=== PATIENT | female | born 1955 | race Caucasian/White ===

== ENCOUNTER 2018-05-06 16:12 | Emergency (ER) | payer BC ==
[2018-05-06] MEDS ORDERED: Adenosine 6 MG/2 ML VIAL ONE ×2 (16:29→16:36)
[2018-05-06 16:44] LABS: #Basophils 0.1 thou/uL (0.0-0.2); #Eosinphils 0.2 thou/uL (0.0-0.7); #Lymphocytes 2.5 thou/uL (1.20-3.40); #Monocytes 0.9 thou/uL (0.11-0.59); #Neutrophils 4.4 thou/uL (1.40-6.50); %Basophils 1.2 % (0.0-1.0); %Eosinophils 2.9 % (0.0-10.0); %Lymphocytes 30.7 % (21.0-51.0); %Monocytes 10.9 % (0.0-10.0); %Neutrophils 54.3 % (42.0-75.0); Hemoglobin 14.8 g/dL (12.0-16.0); Mean Corpuscular Hemoglobin 32.9 pg (27.0-31.0); Mean Corpuscular Volume 96.9 fL (78.0-98.0); Mean Platelet Volume 7.9 fL (7.4-10.4); Platelet Count 307 thou/uL (130-400); Red Blood Cell (RBC) Count 4.49 mill/uL (4.20-5.40); White Blood Cell (WBC) Count 8.1 thou/uL (4.8-10.8)
[2018-05-06] MEDS ORDERED: Magnesium 2 GM/50 ML BAG (IN WATER) ONE (16:46)
[2018-05-06 17:13] LABS: ALT (SGPT) 24 U/L (8-55); AST (SGOT) 19 U/L (5-34); Alkaline Phosphatase 59 U/L (40-150); Anion Gap 14 mmol/L (10-20); BUN (Urea Nitrogen) 20 mg/dL (9.8-20.1); Bilirubin, Total 0.2 mg/dL (0.2-1.2); Calc. Creatinine Clearance 0 mL/min (70-130); Calcium 9.2 mg/dL (7.8-10.44); Carbon Dioxide 22 mmol/L (23-31); Chloride 107 mmol/L (98-107); Estimated GFR-MDRD 59; Globulin 3.7 g/dL (2.4-3.5); Glucose 224 mg/dL (80-115); Potassium 4.2 mmol/L (3.5-5.1); Protein, Total 7.7 g/dL (6.0-8.3); Sodium 139 mmol/L (136-145)
--- NOTE | 2018-05-06 17:33 | RAD ---
CHEST ONE VIEW: 05/06/18 HISTORY: Tachycardia. COMPARISON: None. FINDINGS: Overlying pacing device is noted. Normal cardiac silhouette. Pulmonary vessels and hilum are normal. Costophrenic angles are clear. Lung volumes are diminished, likely due to poor inspiratory effort. No masses or consolidation. Chronic changes in the left and right infraclavicular joint spaces. No pneu mothorax or osseous abnormalities. IMPRESSION: No acute cardiopulmonary process. POS: [facility]
[2018-05-06 17:56] LABS: Free T4 (Free Thyroxine) 0.94 ng/dL (0.70-1.48)
== END 2018-05-06 17:50 | disposition home or self-care (01) ==
LOC: ERS 16:12
DX: R00.2 Palpitations (principal)
CPT/HCPCS: 71045; 80053; 83735; 84439; 84443; 84484; 85025; 93005; 96365; 96375; J0153

== ENCOUNTER 2019-04-26 11:01 | Outpatient (CLI) | payer MEDICARE, OTHER ==
--- NOTE | 2019-04-26 11:43 | MMO ---
Bilateral MAMMO Bilat Screen [facility]. CLINICAL HISTORY: Patient is 63 years old and is seen for screening. The patient has the following family history of breast cancer: mother, at age 88, malignant (generic). The patient has no personal history of cancer. VIEWS: The views performed were: bilateral craniocaudal with tomosynthesis and bilateral mediolateral oblique with tomosynthesis. This study has been interpreted with the assistance of computer-aided detection. MAMMOGRAM FINDINGS: There are scattered fibroglandular densities. There are benign appearing calcifications seen in both breasts. There are no suspicious masses, suspicious calcifications, or areas of architectural distortion. IMPRESSION: THERE IS NO MAMMOGRAPHIC EVIDENCE OF MALIGNANCY. A ROUTINE FOLLOW-UP MAMMOGRAM IN 1 YEAR IS RECOMMENDED. THE RESULTS OF THIS EXAM WERE SENT TO THE PATIENT. ACR BI-RADS Category 2 - Benign finding MAMMOGRAPHY NOTE: 1. A negative mammogram report should not delay a biopsy if a dominant of clinically suspicious mass is present. 2. Approximately 10% to 15% of breast cancers are not detected by mammography. 3. Adenosis and dense breasts may obscure an underlying neoplasm. Reported by: ARLET VACA MD Electonically Signed: [id number]
== END 2019-04-26 11:02 | disposition home or self-care (01) ==
LOC: BICMAMMO 11:01
PROVIDERS: ATTEND Family Medicine
DX: Z12.31 Encounter for screening mammogram for malignant neoplasm of breast (principal); Z80.3 Family history of malignant neoplasm of breast
CPT/HCPCS: 77063; 77067

== ENCOUNTER 2020-01-15 13:46 | Outpatient (CLI) | payer MEDICARE, OTHER ==
--- NOTE | 2020-01-15 14:36 | BD ---
EXAM: DEXA bone density examination HISTORY: Wellness examination; osteoporosis screening evaluation COMPARISON: None FINDINGS: L1--bone mineral density 1.176 g/sq cm; T score 1.7. Z score 3.4 L2--bone mineral density 1.249 g/sq cm; T score 2.0; Z score 3.9 L3--bone mineral density 1.340 g/sq cm; T score 2.3; Z score 4.3 L4--bone mineral density 1.239 g/sq cm; T score 1.6, Z score 3.6 Total L1-L4--bone mineral density 1.252 g/sq cm; T score 1.9, Z score 3.7 Left femoral neck--bone mineral density0.844; T score 0.0, Z score 1.6 Total proximal left femur--bone mineral density 1.118; T score 1.4, Z score 2.8 IMPRESSION: Based on the WHO criteria, the patient's bone mineral density is consideredNormal. The p atient is at low risk for fracture.
== END 2020-01-15 13:47 | disposition home or self-care (01) ==
LOC: BICMAMMO 13:46
PROVIDERS: ATTEND Nurse Practitioner Family
DX: Z13.820 Encounter for screening for osteoporosis (principal); Z78.0 Asymptomatic menopausal state
CPT/HCPCS: 77080

== ENCOUNTER 2020-05-05 09:38 | Outpatient (CLI) | payer MEDICARE, OTHER ==
--- NOTE | 2020-05-05 11:05 | MMO ---
Bilateral MAMMO Bilat Screen [facility]. CLINICAL HISTORY: Patient is 64 years old and is seen for screening. The patient has the following family history of breast cancer: mother, at age 88, malignant (generic). The patient has no personal history of cancer. VIEWS: The views performed were: bilateral craniocaudal with tomosynthesis and bilateral mediolateral oblique with tomosynthesis. FILMS COMPARED: The present examination has been compared to a prior imaging study performed at [facility] on 04/26/2019. This study has been interpreted with the assistance of computer-aided detection. MAMMOGRAM FINDINGS: There are scattered fibroglandular densities. Benign calcifications are noted bilaterally. There are no suspicious masses, suspicious calcifications, or new areas of architectural distortion. IMPRESSION: THERE IS NO MAMMOGRAPHIC EVIDENCE OF MALIGNANCY. A ROUTINE FOLLOW-UP MAMMOGRAM IN 1 YEAR IS RECOMMENDED. THE RESULTS OF THIS EXAM WERE SENT TO THE PATIENT. ACR BI-RADS Category 2 - Benign finding MAMMOGRAPHY NOTE: 1. A negative mammogram report should not delay a biopsy if a dominant of clinically suspicious mass is present. 2. Approximately 10% to 15% of breast cancers are not detected by mammography. 3. Adenosis and dense breasts may obscure an underlying neoplasm. Reported by: ANDREWS GARCIA MD Electonically Signed: [id number]
== END 2020-05-05 09:39 | disposition home or self-care (01) ==
LOC: BICMAMMO 09:38
PROVIDERS: ATTEND Family Medicine
DX: Z12.31 Encounter for screening mammogram for malignant neoplasm of breast (principal); Z80.3 Family history of malignant neoplasm of breast
CPT/HCPCS: 77063; 77067

== ENCOUNTER 2020-06-19 09:10 | Outpatient (CLI) | payer MEDICARE, OTHER | END 2020-06-19 09:11 | disposition home or self-care (01) | LOC: BICMAMMO 09:10 | PROVIDERS: ATTEND Family Medicine | DX: Z13.820 Encounter for screening for osteoporosis (principal); N95.9 Unspecified menopausal and perimenopausal disorder | CPT/HCPCS: 77080 ==

== ENCOUNTER 2021-05-11 10:05 | Outpatient (CLI) | payer MEDICARE, OTHER | END 2021-05-11 10:06 | disposition home or self-care (01) | LOC: BICMAMMO 10:05 | PROVIDERS: ATTEND Family Medicine | DX: Z12.31 Encounter for screening mammogram for malignant neoplasm of breast (principal); Z80.3 Family history of malignant neoplasm of breast | CPT/HCPCS: 77063; 77067 ==

== ENCOUNTER 2021-09-18 10:14 | Emergency (ER) | payer MEDICARE, OTHER ==
[2021-09-18] MEDS ORDERED: Boostrix 0.5 ML (Tdap) VIAL ONE (11:27)
== END 2021-09-18 12:09 | disposition home or self-care (01) ==
LOC: ERS 10:14
DX: S61.412A Laceration without foreign body of left hand, initial encounter (principal); W26.8XXA Contact with other sharp object(s), not elsewhere classified, initial encounter; Y93.H2 Activity, gardening and landscaping; Z23 Encounter for immunization
CPT/HCPCS: 12001; 90471; 90715

== ENCOUNTER 2022-06-25 09:01 | Outpatient (CLI) | payer MEDICARE, OTHER | END 2022-06-25 09:02 | disposition home or self-care (01) | LOC: BICMAMMO 09:01 | PROVIDERS: ATTEND Family Medicine | DX: Z12.31 Encounter for screening mammogram for malignant neoplasm of breast (principal); R92.1 Mammographic calcification found on diagnostic imaging of breast; Z80.3 Family history of malignant neoplasm of breast | CPT/HCPCS: 77063; 77067 ==